=== PATIENT | female | born 1960 | race Caucasian/White ===

== ENCOUNTER 2017-06-06 09:15 | Day surgery (SDC) | payer BC ==
[~2017-06-06 09:15] MED LIST: Bupivacaine 0.5% 30 ML SDV ONE; Lactated Ringers 1,000 ML IV SCH; ceFAZolin 1 GM in Premix Bag 1 BAG IV ONE
[2017-06-06] MEDS ORDERED: Propofol 200 MG/20 ML SDV ONE (10:54)
[2017-06-06] MEDS ORDERED: fentaNYL 100 MCG/2 ML SDV ONE (10:54)
[2017-06-06] MEDS ORDERED: Midazolam 1 MG/ML 2 ML SDV ONE (10:55)
[2017-06-06] MEDS ORDERED: HYDROmorphone 2 MG/ML SDV ONE (10:55)
--- NOTE | 2017-06-06 11:31 | PCM.PREANE ---
Preanesthetic Assessment - Anesthesia/Transfusion/Family Hx Anesthesia History: Prior Anesthesia Without Reaction Transfusion History: No Prior Transfusion(s) - Review of Systems General: No Symptoms Pulmonary: No Symptoms Cardiovascular: No Symptoms Gastrointestinal: No Symptoms Neurological: No Symptoms Other: Reports: None - Physical Assessment NPO Status Date: 06/05/17 NPO Status Time: 18:00 O2 Sat by Pulse Oximetry: 97 Respiratory Rate: 16 Vital Signs: Last Vital Signs Temp 97.9 F 06/06/17 10:04 Pulse 73 06/06/17 10:04 Resp 16 06/06/17 10:04 BP 121/66 06/06/17 10:04 Pulse Ox 97 06/06/17 10:04 Height: 5 ft 2 in Weight: 68.492 kg ASA Class: 2 Mental Status: Alert & Oriented x3 Airway Class: Mallampati = 2 Dentition: Reports: Normal Dentition Thyro-Mental Finger Breadths: 2 (Pt has a small mouth) Mouth Opening Finger Breadths: 3 ROM/Head Extension: Limited/Partial Lungs: Clear to Auscultation, Normal Respiratory Effort Cardiovascular: Regular Rate, Regular Rhythm - Allergies Allergies/Adverse Reactions: Allergies Allergy/AdvReac Type Severity Reaction Status Date / Time iodine Allergy Blisters Verified 06/03/17 09:31 - Acknowledgements Anesthesia Type Planned: MAC Pt an Appropriate Candidate for the Planned Anesthesia: Yes Alternatives and Risks of Anesthesia Discussed w Pt/Guardian: Yes Pt/Guardian Understands and Agrees with Anesthesia Plan: Yes PreAnesthesia Questionnaire HEENT History: Reports: Allergic Rhinitis Cardiovascular History: Reports: Blood Clots/VTE/DVT, Other (See Below) Other Cardiovascular History: blood clot to rt lower extremity after removal of ganglion cyst to rt knee Respiratory History: Reports: None Gastrointestinal History: Reports: Other (See Below) Other Gastrointestinal History: occasional heartburn Genitourinary History: Reports: None Musculoskeletal History: Reports: Fibromyalgia Neurological History: Reports: Concussion Psychiatric History: Reports: None Endocrine/Metabolic History: Reports: None Hematologic History: Reports: None Immunologic History: Reports: None Oncologic (Cancer) History: Reports: Squamous Cell Carcinoma Dermatologic History: Reports: None - Infectious Disease History Infectious Disease History: Reports: None - Past Surgical History Head Surgeries/Procedures: Reports: None HEENT Surgical History: Reports: LASIK GI Surgical History: Reports: Appendectomy Musculoskeletal Surgical History: Reports: Other (See Below) Other Musculoskeletal Surgeries/Procedures:: ganglion cyst removed from rt knee Dermatological Surgical History: Reports: Skin Biopsy - SUBSTANCE USE Smoking Status *Q: Never Smoker Recreational Drug Use History: No - HOME MEDS Home Medications: Home Meds Fluticasone Propionate [Flonase Allergy Relief] 1 - 2 spray NASBOTH DAILY [History] Montelukast Sodium 10 mg PO DAILY PRN 06/03/17 [History] traZODone HCl [Trazodone HCl] 50 mg PO BEDTIME PRN 06/03/17 [History] - CURRENT (IN HOUSE) MEDS Current Meds: Current Medications Lactated Ringer's (Ringers, Lactated) 1,000 mls @ 125 mls/hr IV ASDIRECTED [facility] Last Admin: 06/06/17 10:07 Dose: 125 mls/hr Discontinued Medications Bupivacaine HCl (Marcaine 0.5%) Confirm Administered Dose 30 ml .ROUTE .STK-MED ONE Stop: 06/06/17 07:37 Fentanyl (Sublimaze) Confirm Administered Dose 100 mcg .ROUTE .STK-MED ONE Stop: 06/06/17 10:55 Hydromorphone HCl (Dilaudid) Confirm Administered Dose 2 mg .ROUTE .STK-MED ONE Stop: 06/06/17 10:56 Cefazolin Sodium/Dextrose 1 gm (/ Premix) 50 mls @ 100 mls/hr IV ONETIME ONE Stop: 06/06/17 07:29 Midazolam HCl (Versed 1 Mg/Ml) Confirm Administered Dose 2 mg .ROUTE .STK-MED ONE Stop: 06/06/17 10:56 Propofol (Diprivan 20 Ml) Confirm Administered Dose 200 mg .ROUTE .STK-MED ONE Stop: 06/06/17 10:55
[2017-06-06] MEDS ORDERED: Ketorolac 30 MG/ML SDV ONE (11:35)
[2017-06-06] MEDS ORDERED: ceFAZolin 1 GM Vial ONE (11:57)
[2017-06-06] MEDS ORDERED: diphenhydrAMINE 50 MG/ML SDV ONE (12:47)
[2017-06-06] MEDS ORDERED: Ondansetron 4 MG/2 ML SDV ONE (12:47)
[2017-06-06] MEDS ORDERED: ePHEDrine 50 MG/ML SDV ONE (12:49)
[2017-06-06] MEDS ORDERED: fentaNYL 100 MCG/2 ML SDV IVPUSH PRN (12:51)
[2017-06-06] MEDS ORDERED: Naloxone 0.4 MG/ML Syringe ONE (14:34)
[2017-06-06] MEDS ORDERED: Lidocaine 1% 20 ML MDV ONE (14:34)
[2017-06-06] MEDS ORDERED: Acetaminophen/HYDROcodone 325-5 MG Tab PO PRN (15:03)
--- NOTE | 2017-06-06 15:12 | PCM.OPNOTE ---
- General Post-Op/Procedure Note Date of Surgery/Procedure: 06/06/17 Operative Procedure(s): bunionectomy with first metatarsal osteotomy left foot Findings: consistent with dx Pre Op Diagnosis: hallux valgus with bunion deformity left foot Post-Op Diagnosis: hallux valgus with bunion deformity left foot Anesthesia Technique: General LMA Primary Surgeon: Iker Figueroa Pathology: none EBL in mLs: 5 Complications: none Condition: Good Free Text/Narrative:: Intake & Output 06/06/17 06/06/17 06/06/17 06:59 14:59 22:59 Intake Total 1300 Balance 1300 materials: [place] 3.0 x 15 mm cannulated partially threaded screw x 1, Parul 3.0 x 16 mm cannulated partially threaded screw x 1, 3-0 vicryl, 4-0 vicryl, 4- 0 prolene injectables: 8 ml of 1:1 mix of 1% lidocaine plain and 0.5% marcaine plain pre- op 10 ml of 0.5% marcaine plain post-op
--- NOTE | 2017-06-07 03:51 | OR ---
SURGEON: Iker Figueroa DPM DATE OF PROCEDURE: 06/06/2017 PREOPERATIVE DIAGNOSIS: Hallux valgus with bunion deformity, left foot. POSTOPERATIVE DIAGNOSIS: Hallux valgus with bunion deformity, left foot. OPERATIVE PROCEDURE: Bunionectomy with first metatarsal osteotomy, left foot. FINDINGS: Consistent with diagnosis. ANESTHESIA: General with a preoperative local block consisting of 10 mL of a 1:1 mixture of 1% lidocaine plain and 0.5% Marcaine plain. MATERIALS: Parul 3.0 x 15 mm cannulated partially-threaded screw x1, [place] 3.0 x 16 mm cannulated partially threaded screw x1, 3-0 Vicryl suture, 4-0 Vicryl suture, 4- 0 Prolene suture. INJECTABLES: At the end of the procedure, 10 mL of 0.5% Marcaine plain. HEMOSTASIS: Above-ankle pneumatic tourniquet inflated to a pressure of 250 mmHg after an [place] bandage exsanguination. ESTIMATED BLOOD LOSS: 5 mL. COMPLICATIONS: None. CONDITION: The patient tolerated the procedure and the anesthesia well with vital signs stable, neurovascular status intact to all toes of the left foot. JUSTIFICATION FOR THE PROCEDURE: The patient is an established patient of [facility], who has suffered from pain in the left foot due to a moderate bunion deformity with hallux valgus for a number of years, which is slowly worsening and resulting in difficulty with ambulation and shoe gear, particularly in the first metatarsophalangeal joint and the medial and plantar surfaces of the first metatarsal head area. The patient has tried conservative measures, offloading inserts, and shoe gear modifications and alterations and has not achieved satisfactory relief. After detailed discussions with the patient and evaluation of x-rays and explanations to the patient, the patient has elected for surgical correction today and has consented for the surgery with the consent placed in her chart. No guarantees given or implied. PROCEDURE IN DETAIL: Bunionectomy with first metatarsal osteotomy, left foot. Attention was directed to the dorsal medial aspect of the left foot where incision was planned and made approximately 5 cm slightly curvilinear incision medial to the extensor hallucis longus tendon. Incision was deepened through the subcutaneous tissues using sharp and blunt dissection. Care was taken to identify and retract all vital neurovascular structures. All bleeders were cauterized as necessary. The medial dorsal cutaneous nerve was identified and retracted as part of the retraction of the structures on the plantar side of the incision. A longitudinal inverted L shaped capsulotomy was performed medial to the extensor tendon over the first metatarsophalangeal joint. The periosteal capsular structures were dissected free of their osseous attachments with a 15 blade, exposing the head of the first metatarsal. At this point, visualizing the first metatarsal head, stage II chondromalacia is noted to the dorsal aspect of the first metatarsal head. Attention was directed to the medial aspect of the first metatarsal where a power saw was used to perform a bunionectomy over the medial eminence of the first metatarsal head, preserving the medial sagittal groove on the first metatarsal head. Attention was then directed to the lateral side of the first metatarsal, and retraction was utilized as needed to access the structures on the lateral side of the joint in the 1st intermetatarsal space. These plantar soft tissue attachments were released including the fibular sesamoid ligament, the transverse, and oblique heads of the adductor hallucis tendon and the deep transverse intermetatarsal ligament. Attention was then redirected to the exposed medial head of the first metatarsal. An apical axis guidewire was placed in the concentric center, and the saw was used to make 2 cuts in a V-type osteotomy with the dorsal arm being much longer than the plantar arm at an angle being formed of approximately 60 degrees. Once these 2 cuts were made, a [place] and straight [place] were utilized to laterally translocate the capital fragment of the first metatarsal into a more corrected position with the proximal-most portion of the dorsal arm being kept aligned with the proximal portion of the bone over the shaft of the bone. Two temporary K-wires were used to fixate this desired position. Intraoperative fluoroscopy was used at this point and throughout the procedure to verify positioning of bone and hardware with the bone being fixated. Two guidewires were drilled slightly obliquely oriented from dorsal distal to proximal plantar. Cannulated drill bits were used over these wires to drill the site. This was followed by measurement with a cannulated measuring guide and selection of screws. Ultimately, the 15 mm and a 16 mm screw were selected. These were also cannulated partially threaded screws with a 3 mm diameter. Once the screws had been inserted following countersinking and purchase and excellent positioning was achieved and verified with intraoperative fluoroscopy. The area was flushed, and attention was redirected to the medial side where the exposed portion of the proximal side of the first metatarsal bone from the V cut was then removed with a power saw and rasped with a power bone rasp to achieve a smooth surface all around. Correction of the deformity was assessed and noted to be excellent at this time. The wound was flushed again with copious amounts of normal sterile saline and the periosteal and capsular structures were reapproximated using 3-0 Vicryl suture. The subcutaneous tissues were then reapproximated with 4-0 Vicryl suture and the skin with 4-0 Prolene suture. The area was then infiltrated with 10 mL of 0.5% Marcaine plain. The tourniquet was deflated. The area was covered with Xeroform gauze. No Betadine was used in this procedure due to the patient's allergy. The area was then secured and covered with 4 x 4, fluff gauze, Kerlix roll, and ultimately secured with an Donta bandage. The patient tolerated the procedure and the anesthesia well with no complications noted and did have a prompt hyperemic response to all digits of the left foot following deflation of the tourniquet. After brief stay in recovery room, the patient is being discharged home with prescription for adequate analgesic care. Also, a postoperative shoe has been fixed to the patient's foot in the recovery room. I have provided written instructions for the patient and discussed the plan briefly with her . The patient will be following up in 3 days in my office. The patient has my phone number in the event that any concerns arise. JEANNETTE / KIRAN /[id number] PALLAVI
--- NOTE | 2017-06-09 06:46 | PN ---
SURGERY: Bunionectomy with 1st metatarsal osteotomy, left foot. ALLERGIES: The patient is allergic to iodine. No other known allergies. ACTIVE PROBLEMS: 1. Actinic keratosis. 2. Acute sinusitis. 3. Adverse effect of fluorouracil. 4. Allergic rhinitis. 5. Bilateral bunions. 6. Bronchopneumonia. 7. Chronic insomnia. 8. Encounter for Pap smear. 9. Epistaxis. 10.Heartburn. 11.Insomnia. 12.Maxillary sinusitis. 13.Other fatigue. 14.Periorbital dermatitis. 15.Periorbital swelling. 16.Postmenopausal bleeding. 17.Postmenopausal symptoms. 18.Secondary infection, skin. 19.Sinus drainage. 20.Sinusitis. 21.Warts. PAST SURGICAL HISTORY: History of appendectomy and knee surgery, and she has a history of fibromyalgia as well. CURRENT MEDICATIONS: 1. Fluticasone propionate 50 mcg nasal suspension, use 1 to 2 sprays in each nostril once daily. 2. Montelukast sodium 10 mg oral tablet, 1 tablet daily. 3. Trazodone hydrochloride 50 mg oral tablet, 1 tablet at bedtime as needed for sleep. LABORATORY DATA: White blood cell 6.32, red blood cell 4.73, hemoglobin 14.4, hematocrit 42.3, platelets 192. Sodium 141, potassium 4.4, chloride 107, CO2 is 26, random glucose 87, BUN 17, creatinine 0.8, calcium 9.9. The patient was cleared for surgery by Dr. Antonio after he reviewed the EKG, which showed normal sinus rhythm, and chest x-ray was clear of consolidation and infiltration. The patient was cleared for surgery following her June 03 encounter and the patient presents for left foot bunion surgery today. No guarantees expressed or implied. JEANNETTE / KIRAN /[id number]
== END 2017-06-06 16:25 | disposition home or self-care (01) ==
LOC: MW.SDS 09:15
PROVIDERS: ATTEND Podiatrist Foot & Ankle Surgery
DX: M20.12 Hallux valgus (acquired), left foot (principal); M94.272 Chondromalacia, left ankle and joints of left foot; J30.9 Allergic rhinitis, unspecified; M79.7 Fibromyalgia; Z90.49 Acquired absence of other specified parts of digestive tract; Z98.890 Other specified postprocedural states; Z79.51 Long term (current) use of inhaled steroids; Z79.899 Other long term (current) drug therapy
CPT/HCPCS: 28296; A9270; J0690; J1170; J1200; J2250; J2405; J3010; J7120; 01480; C1713; J1885; J2704

== ENCOUNTER 2021-06-11 13:03 | Emergency (ER) | payer BC ==
[2021-06-11] MEDS ORDERED: Diphtheria,Pertussis(Acell),Tetanus Vaccine 0.5 ML Syringe IM ONE (13:20)
== END 2021-06-11 14:01 | disposition home or self-care (01) ==
LOC: MW.ED 13:03
DX: S61.213A Laceration without foreign body of left middle finger without damage to nail, initial encounter (principal); Z23 Encounter for immunization; Z91.041 Radiographic dye allergy status; W26.8XXA Contact with other sharp object(s), not elsewhere classified, initial encounter
CPT/HCPCS: 12002; 90471; 90715; 99283-25